=== PATIENT | female | born 1975 | race Caucasian/White ===

== ENCOUNTER 2023-06-11 17:27 | Emergency (ER) | payer BC ==
[2023-06-11] MEDS ORDERED: Propofol 200 MG/20 ML SDV IVPUSH ONE (17:39)
[2023-06-11] MEDS ORDERED: Ondansetron 4 MG/2 ML SDV IVPUSH ONE (17:39)
[2023-06-11] MEDS ORDERED: Lactated Ringers 1,000 ML IV SCH (17:45)
[2023-06-11] MEDS ORDERED: fentaNYL 50 MCG/ML SDV IVPUSH ONE (18:21)
[2023-06-11] MEDS ORDERED: fentaNYL 100 MCG/2 ML SDV IVPUSH ONE (18:57)
[2023-06-11] MEDS ORDERED: Ibuprofen 400 MG Tab PO ONE (20:23)
[2023-06-11] MEDS ORDERED: Acetaminophen 325 MG Tab PO ONE (20:23)
[2023-06-11] MEDS ORDERED: Ondansetron 4 MG Tab.DIS PO ONE (22:27)
== END 2023-06-11 22:30 | disposition home or self-care (01) ==
LOC: MW.ED 17:27
DX: S82.831A Other fracture of upper and lower end of right fibula, initial encounter for closed fracture (principal); Z79.899 Other long term (current) drug therapy; W18.30XA Fall on same level, unspecified, initial encounter
CPT/HCPCS: 27788; 73590; 73600; 73610; 96361; 96374; 96375; 96376; 99284; A9270; J2405; J2704; J3010; J7120; 27842

== ENCOUNTER 2025-01-14 10:59 | Emergency (ER) | payer BC ==
[2025-01-14 11:30] LABS: BASOPHILS ABSOLUTE AUTO 0.04 K/uL (0.00-0.20); BASOPHILS PERCENT AUTO 0.4 % (0.0-1.0); EOSINOPHILS ABSOLUTE AUTO 0.19 K/uL (0.00-0.45); EOSINOPHILS PERCENT AUTO 1.9 % (0.0-6.0); IMMATURE GRAN ABSOLUTE AUTO 0.02 K/uL (0.00-0.05); IMMATURE GRAN PERCENT AUTO 0.2 % (0.0-0.4); LYMPHOCYTES ABSOLUTE AUTO 1.69 K/uL (1.00-4.80); LYMPHOCYTES PERCENT AUTO 17.3 % (24.0-44.0); MEAN PLATELET VOLUME 9.6 fL (9.4-12.3); MONOCYTES ABSOLUTE AUTO 0.74 K/uL (0.00-0.80); MONOCYTES PERCENT AUTO 7.6 % (0.0-8.0); NEUTROPHILS ABSOLUTE AUTO 7.11 K/uL (1.80-7.70); NEUTROPHILS PERCENT AUTO 72.6 % (41.0-71.0); NRBC ABSOLUTE 0.00 K/uL (0.00-0.02); NRBC PERCENT 0.0 /100WBC (0.0-0.2); PLATELET COUNT,PLT 257 K/uL (150-400); RED BLOOD CELL COUNT 4.45 M/uL (4.10-5.30); WHITE BLOOD CELL COUNT,WBC 9.79 K/uL (3.9-11.3)
[2025-01-14] MEDS: Ondansetron 4 MG/2 ML SDV IVPUSH ONE (11:35)
[2025-01-14 12:05] LABS: A/G RATIO 1.0 (0.9-1.6); ALANINE AMINOTRANSFERASE,ALT 21 IU/L (14-63); ASPARTATE AMNIOTRANSFERASE,AST 14 IU/L (15-37); BILIRUBIN TOTAL 0.5 mg/dL (0.2-1.0); BLOOD UREA NITROGEN,BUN 11 mg/dL (7.0-18.0); CARBON DIOXIDE,CO2 29.6 mmol/L (21.0-32.0); CHLORIDE,CL 100 mmol/L (98-107); CREATININE 1.1 mg/dL (0.6-1.0); GLUCOSE RANDOM 101 mg/dL (74-106); POTASSIUM,K 4.2 mmol/L (3.5-5.1); PRO B-TYPE NATRIUR PEPT,BNPPRO 282 pg/mL (0-125); PROTEIN TOTAL,TP 7.6 g/dL (6.4-8.2); SODIUM,NA 135 mmol/L (136-145); TSH ULTRASENSITIVE 1.67 uIU/mL (0.36-3.74)
[2025-01-14 12:08] LABS: ESTIMATED GFR 62 mL/min (>60)
[2025-01-14] MEDS: Ketorolac 30 MG/ML SDV IVPUSH ONE (12:48)
[2025-01-14 13:15] LABS: APPEARANCE,URINE CLEAR; GLUCOSE,URINE NEGATIVE (NEGATIVE); OCCULT BLOOD,URINE NEGATIVE (NEGATIVE)
== END 2025-01-14 14:55 | disposition home or self-care (01) ==
LOC: MW.ED 10:59
DX: R07.89 Other chest pain (principal); R91.8 Other nonspecific abnormal finding of lung field; E86.0 Dehydration; I10 Essential (primary) hypertension; Z90.710 Acquired absence of both cervix and uterus; Z79.899 Other long term (current) drug therapy; Z75.3 Unavailability and inaccessibility of health-care facilities
CPT/HCPCS: 36415; 71045; 71045-26; 80053; 81003; 83880; 84443; 84484; 85025; 85379; 93005; 96361; 96374; 96375; 99285-25; A9270-GY; J1885; J2270; J2405; J7030